=== PATIENT | female | born 1995 | race Caucasian/White ===

== ENCOUNTER 2021-02-02 20:03 | Emergency (ER) | payer OTHER, SELFPAY ==
[2021-02-02 20:05] VITALS: BP 115/75; PULSE 98; RESP 16; TEMP 36.9; O2SAT 100; BMI 18.1
--- NOTE | 2021-02-02 20:07 | RAD_ITS ---
STUDY: X-RAY - LEFT WRIST REASON FOR EXAM: Female, 25 years old. INJURY TECHNIQUE: 3 view(s) of the wrist were obtained. COMPARISON: None. FINDINGS: Normal visualized distal radius and ulna. Normal radiocarpal articulation. Normal distal radioulnar articulation. Normal carpal bones. Normal carpal articulations. Normal carpometacarpal articulation of the thumb. Normal second through fifth carpometacarpal articulations. Normal visualized metacarpal bones. The soft tissue structures are unremarkable. RAD/Wrist min 3 Views IMPRESSION: Normal x-ray examination of the wrist. Electronically Signed: Estella Caballero MD at 20:48 EST Tel , Service support ,
--- NOTE | 2021-02-02 20:15 | RAD_ITS ---
STUDY: X-RAY - LEFT ELBOW REASON FOR EXAM: Female, 25 years old. INJURY TECHNIQUE: 3 view(s) of the elbow. COMPARISON: None. FINDINGS: There is a radial neck fracture. There is an associated joint effusion. Normal visualized humerus and ulna. Normal radiocapitellar and ulnotrochlear articulations. RAD/Elbow min 3 Views IMPRESSION: Proximal radial fracture. Electronically Signed: Estella Caballero MD at 20:47 EST Tel , Service support ,
[2021-02-02 22:22] VITALS: PULSE 140; O2SAT 98
--- NOTE | 2021-02-02 22:33 | EX.ED.UPPERE ---
HPI History of Present Illness Chief Complaint: Upper Extremity Injury Informant: patient Narrative Narrative: [id number] female presents valuation mechanical fall left elbow wrist injury 7 PM this evening at work. Tripped over a coworker's foot. No head injuries. No anticoagulation medicines. No medications taken prior to arrival. No paresthesias. PFSH PFSH Medical History no medical history Home Medications Control 02/02/21 [History Last Taken Unknown] tramadol 50 mg PO Q6H PRN #12 tab 02/02/21 [Rx Last Taken Unknown] Allergy/AdvReac Type Severity Reaction Status Date / Time No Known Allergies Allergy Verified 02/02/21 20:04 Social History Smoking Status: Unknown if ever smoked ROS ROS ED Constitutional Constitutional ED: Denies chills, fever(s) or sweats Eyes Eyes: Denies change in vision ENT ENT ED: Denies dysphagia or sore throat Cardiovascular Cardiovascular: Denies chest pain, leg edema, palpitations or racing heartbeat Respiratory/Chest Respiratory/Chest: Denies cough, dyspnea or dyspnea on exertion Gastrointestinal Gastrointestinal: Denies abdominal pain, diarrhea, nausea or vomiting Genitourinary Genitourinary ED: Denies dysuria, hematuria or urinary frequency Musculoskeletal Musculoskeletal: Reports other Details: Left elbow and wrist injury ; Denies back pain, extremity pain or neck pain Integumentary Denies rash or wounds Neurologic Neurologic: Denies headache(s), paresthesias or weakness EXAM Physical Exam Const Vital Signs: 02/02/21 20:05 02/02/21 22:22 Temperature 98.4 F Temperature Source Temporal Pulse Rate 98 140 H Respiratory Rate 16 Blood Pressure 115/75 Blood Pressure Mean 88 Pulse Ox 100 98 Oxygen Delivery Method Room Air Nasal Cannula Oxygen Flow Rate (L/min) 2 Positive well nourished and well developed General Appearance ED: well developed and NAD HEENT Reports moist mucous membranes normocephalic and atraumatic Eyes PERRL, EOMs intact bilaterally and conjunctivae normal General Eye ED: Yes normal appearance of both eyes Neck no lymphadenopathy and supple General: Negative for tenderness Chest Wall Chest: Negative for tenderness Resp normal respiratory effort and normal air movement Effort and Inspection: symmetric chest movement; Negative for respiratory distress Cardio regular rate, regular rhythm and no murmurs Peripheral Pulses: pulses 2+ throughout GI normal to inspection, nondistended, normoactive bowel sounds and non-tender Palpation: Negative for guarding or rebound tenderness present Back/Spine no CVA tenderness and no thoracic nor lumbar tenderness Extremity Extremity Narrative: Left upper extremity: No shoulder tenderness. No olecranon tenderness. Tender palpation of the radial head with pain with pronation and supination. Skin intact. Mild tenderness dorsal aspect of the wrist. No styloid tenderness. Skin intact. Neurovascular intact distally. General Extremety ED: Yes edema; Negative for tenderness General Extremity: edema Neuro oriented x3 and no sensory deficits noted Sensorium / Orientation: awake and alert Skin no rashes or lesions noted and no wounds MDM MDM MDM Narrative Medical decision making narrative: Image studies of left elbow and wrist obtained from triage reviewed by myself and read by radiology. Normal wrist. X-ray concerns for joint effusion consistent with the radial head fracture. Patient requests only Tylenol. Will place in long-arm splint for immobilization with sling. Follow-up with orthopedics. Appropriate work restrictions will be given. Prescription for tramadol to use as needed. She is tolerated this in the past. Splinting procedure. Nylon sleeve was placed. Kerlix dressing for padding. 5 inch plaster splint used for long-arm posterior splint locking forearm in a neutral position. Derrek wrap to secure. Patient tolerated procedure well. Neurovascular intact post splinting. Radiography Diagnostic Testing: Clinical Impression(s) from Imaging Studies Wrist X-Ray 02/02/21 20:07 IMPRESSION: Normal x-ray examination of the wrist. Electronically Signed: Estella Caballero MD at 20:48 EST Tel , Service support , Elbow X-Ray 02/02/21 20:15 IMPRESSION: Proximal radial fracture. Electronically Signed: Estella Caballero MD at 20:47 EST Tel , Service support , Discharge Plan Triage Chief Complaint: Upper Extremity Injury ED Provider: Nikhil Rivera Dx/Rx/DC Orders Clinical Impression: Closed fracture of head of left radius, Left wrist sprain Instructions: ED Elbow Fracture, ED Wrist Sprain Prescriptions: New tramadol 50 mg tablet 50 mg PO Q6H PRN (Reason: pain) Qty: 12 RF: 0 No Action Control RF: 0 Referrals: Fernando Garcia MD [STAFF PHYSICIAN] - 3-5 Days Activity Restrictions/Additional Instructions: Left elbow with concerns of fracture of the radial head. Left wrist x-ray negative. Maintain splint and sling for comfort. Continue Tylenol every 6 hours, tramadol to use as needed. Follow-up with orthopedics for outpatient evaluation and further management. No driving or heavy machinery if using tramadol. Disposition Disposition: Home, Self Care Discharge Date/Time: 02/02/21 23:37
[2021-02-02] MEDS: Acetaminophen 500 MG Tablet 1000 MG PO (22:46)
== END 2021-02-02 23:37 | disposition home or self-care (01) ==
PROVIDERS: Emergency Provider Emergency Medicine
DX: S52.122A Displaced fracture of head of left radius, initial encounter for closed fracture (principal); S63.502A Unspecified sprain of left wrist, initial encounter; W01.0XXA Fall on same level from slipping, tripping and stumbling without subsequent striking against object, initial encounter; Y93.89 Activity, other specified; Y92.89 Other specified places as the place of occurrence of the external cause; Y99.0 Civilian activity done for income or pay
CPT/HCPCS: 29105; 73080; 73110; 99283